=== PATIENT | female | born 1990 | race Caucasian/White ===

== ENCOUNTER 2018-08-23 05:58 | Day surgery (SDC) | END 2018-08-23 10:47 | disposition home or self-care (01) ==

== ENCOUNTER 2018-09-10 03:02 | Inpatient (IN) | END 2018-09-12 13:45 | disposition home or self-care (01) | DRG 389 ==

== ENCOUNTER 2018-10-13 14:03 | Emergency (ER) | END 2018-10-13 19:13 | disposition home or self-care (01) ==

== ENCOUNTER → 2019-06-19 | Outpatient (CLI) | payer OTHER ==
[~2019-06-19] MED LIST: BARIUM SULFATE 135 ML (E-Z HD) PO ONE; CEPH-443 PO; CIPR500T4 PO; DOCU250C58 PO; LACT1CAP57 PO; NAPR220C2 PO; SIMETH/SOD BICARB/CIT AC PKT (E-Z- GAS II) PO ONE; SULF1TAB31 PO
== END | disposition home or self-care (01) ==
LOC: RAD 09:51
PROVIDERS: ATTEND Surgery Surgical Oncology
DX: R10.10 Upper abdominal pain, unspecified (principal)
CPT/HCPCS: 74240; Z7610